=== PATIENT | male | born 1965 | race Caucasian/White ===

== ENCOUNTER 2020-01-23 13:22 | Emergency (ER) | payer OTHER, MEDICAID ==
[~2020-01-23] VITALS: Ht 170.2 cm; Wt 65.8 kg
[2020-01-23 13:23] VITALS: Ht 170.2 cm; Wt 65.8 kg
[2020-01-23 14:14] VITALS: BP 110/68
== END 2020-01-23 14:14 | disposition home or self-care (01) ==
LOC: ED 13:22
DX: U07.1 COVID-19 (principal); B34.9 Viral infection, unspecified
CPT/HCPCS: U0003-CS